=== PATIENT | male | born 1975 | race Caucasian/White ===

== ENCOUNTER 2016-05-24 20:57 | Emergency (ER) | payer BC, OTHER ==
[~2016-05-24] VITALS: Ht 177.8 cm; Wt 98.0 kg
[2016-05-24 21:02] VITALS: Ht 177.8 cm; Wt 98.0 kg
--- NOTE | 2016-05-24 21:48 | ERD ---
ER Documentation Chief Complaint Date/Time DATE: 05/24/16 TIME: 21:45 Chief Complaint body aches x 3 days, numbness on fingers x 3 days HPI 40-year-old presents in emergency department for multiple complaints, patient's complaining of joint pains bodyaches and numbness and tingling for the last 3 days. Patient denies any trauma in the joints. Patient does admit to feeling anxious today while is here in the hospital, had this history before. Patient denies any chest pain or palpitations. Patient denies any dizziness. Patient denies any fever or chills. She described the joint pains as sharp pain, 4/10 scale, better worse with anything. Patient denies any swelling. ROS All systems reviewed and are negative except as per history of present illness. Medications Home Meds Reported Medications [none] Unknown Strength No Conflict Check 05/24/16 Allergies Allergies: Coded Allergies: No Known Allergy (Unverified , 05/24/16) PMhx/Soc Medical and Surgical Hx: pt denies Surgical Hx History of Surgery: No Hx Neurological Disorder: No Hx Respiratory Disorders: No Hx Cardiac Disorders: Yes (HTN) Hx Psychiatric Problems: No Hx Miscellaneous Medical Probl: No Hx Alcohol Use: Yes Hx Substance Use: No Hx Tobacco Use: No Smoking Status: Never smoker FmHx Family History: No coronary disease, No diabetes, No other Physical Exam Vitals Vital Signs Date Time Temp Pulse Resp B/P Pulse Ox O2 Delivery O2 Flow Rate FiO2 05/24/16 22:11 107 05/24/16 21:02 97.8 111 20 168/96 100 Physical Exam GENERAL: The patient is well developed and appropriate for usual state of health, in no apparent distress. CHEST: Clear to auscultation bilaterally. There are no rales, wheezes or rhonchi. HEART: Regular rate and rhythm. No murmurs, clicks, rubs or gallops. No S3 or S4. ABDOMEN: Soft, nontender and nondistended. Good bowel sounds. No rebound or guarding. No gross peritonitis. No gross organomegaly or masses. No Morgan sign or McBurney point tenderness. BACK: No midline or flank tenderness. EXTREMITIES: Equal pulses bilaterally. There is no peripheral clubbing, cyanosis or edema. No focal swelling or erythema. Full range of motion. Grossly neurovascularly intact. NEURO: Alert and oriented. Cranial nerves 2-12 intact. Motor strength in all 4 extremities with 5/5 strength. Sensation grossly intact. Normal speech and gait. SKIN: There is no apparent rash or petechia. The skin is warm and dry. HEMATOLOGIC AND LYMPHATIC: There is no evidence of excessive bruising or lymphedema. No gross cervical, axillary, or inguinal lymphadenopathy. Result Diagram: 05/24/16215405/24/162154 Results 24 hrs Laboratory Tests Test 05/24/16 21:45 05/24/16 21:55 Urine Color LT. YELLOW Urine Clarity CLEAR Urine pH 6.0 Urine Specific Perry 1.020 Urine Ketones NEGATIVE Urine Nitrite NEGATIVE Urine Bilirubin NEGATIVE Urine Urobilinogen 0.2 E.U./dL Urine Leukocyte Esterase NEGATIVE Urine Hemoglobin NEGATIVE Urine Glucose NEGATIVE% Urine Total Protein NEGATIVE White Blood Count 12.710^3/ul Red Blood Count 5.3210^6/ul Hemoglobin 16.0g/dl Hematocrit 45.5% Mean Corpuscular Volume 85.5fl Mean Corpuscular Hemoglobin 30.1pg Mean Corpuscular Hemoglobin Concent 35.2g/dl Red Cell Distribution Width 12.9% Platelet Count 13594^3/UL Mean Platelet Volume 9.8fl Neutrophils % 72.6% Lymphocytes % 15.9% Monocytes % 9.3% Eosinophils % 1.6% Basophils % 0.3% Nucleated Red Blood Cells % 0.0/100WBC Neutrophils # 9.210^3/ul Lymphocytes # 2.010^3/ul Monocytes # 1.210^3/ul Eosinophils # 0.210^3/ul Basophils # 0.010^3/ul Nucleated Red Blood Cells # 0.010^3/ul Sodium Level 135mmol/L Potassium Level 4.0mmol/L Chloride Level 101mmol/L Carbon Dioxide Level 25mmol/L Anion Gap 13 Blood Urea Nitrogen 21mg/dl Creatinine 1.03mg/dl Glucose Level 112mg/dl Calcium Level 9.6mg/dl Total Bilirubin 0.2mg/dl Direct Bilirubin 0.00mg/dl Indirect Bilirubin 0.2mg/dl Aspartate Amino Transf (AST/SGOT) 32IU/L Alanine Aminotransferase (ALT/SGPT) 65IU/L Alkaline Phosphatase 108IU/L Total Protein 8.0g/dl Albumin 4.7g/dl Globulin 3.30g/dl Albumin/Globulin Ratio 1.42 Current Medications Medications (Trade) Dose Ordered Sig/Natasha Route PRN Reason Start Time Stop Time Status Last Admin Dose Admin Alprazolam (Xanax) 0.25 mg ONCE ONCE PO 05/24/16 22:00 05/24/16 22:01 DC 05/24/16 21:49 Ketorolac Tromethamine (Toradol) 60 mg ONCE ONCE IM 05/24/16 23:25 05/24/16 23:26 DC EKG was done, read by me and is signed and sinus tachycardia at 107 bpm, normal axis, there is no ST changes or changes in the EKG that indicates any cardiac emergencies at this time. Patient's EKG was also reviewed by Dr. Chase. Impression: no acute findings on EKG. Xanax was given here in emergency department since patient felt anxious while being here in the hospital. PROCEDURE: US OB. CLINICAL INDICATION: Pelvic pain TECHNIQUE: Transabdominal and transvaginal views of the pelvis are available for review. COMPARISON: No prior studies are available for comparison. FINDINGS: There is a single intrauterine gestation with the crown-rump length measuring 1.2 cm, corresponding to a gestational age of 7 weeks and 2 days. The heart rate is noted at 144 bpm. There are small hypoechoic areas adjacent to the gestational sac, consistent with subchorionic hemorrhage. There is an IUD seen in the lower cervical canal. The ovaries are normal in size and echogenicity. Normal Doppler flow is identified in both ovaries. The right ovary measures 2.9 x 1.6 x 1.5 cm. The left ovary measures 3.7 x 1.8 x 1.9 cm. There is a small hemorrhagic cyst in the left ovary, suspicious for a corpus luteum cyst. There is a trace amount of free fluid in the cul-de-sac. RPTAT: AA IMPRESSION: Single live intrauterine with an estimated gestational age of 7 weeks and 2 days, based on ultrasound measurements. YUMIKO based on ultrasound measurements is 01/08/17 Small areas of subchorionic hemorrhage are noted. IUD within the lower cervical canal. Follow-up is needed. .Tristen Mayers MD, MD Date Time Electronically viewed and signed by .Tristen Mayers MD, MD on 05/24/2016 21: 46 .S/ CC: GREGORIO OWENS NP Procedures/MDM Medical Decision Making: Patient's pain is nonspecific at this time, possible some form of arthritis or possible autoimmune. There is no suspicion for neurovascular compromise. Patient has intact sensation and circulation of the affected extremity. There is low suspicion for septic arthritis. Patient does not have any fever. Radiology exams of the affected area does not show any fracture or dislocation. Disposition: Home. Patient is given prescription for ibuprofen for to moderate pain, Scenic for severe pain. Patient was advised to elevate the affected area and apply ice on affected area. Patient was advised that if symptoms are worse , numbness, tingling, high fever, unable to move joint, worsening symptoms, to return to emergency department immediately. Otherwise, patient is advised to follow up with the primary care doctor in 5-7 days for reevaluation of symptoms. Departure Diagnosis: Primary Impression: Joint pain Joint pain location: unspecified Qualified Code: M25.50 - Arthralgia, unspecified joint Condition: Stable Patient Instructions: Arthralgia Additional Instructions: Patient is given prescription for ibuprofen for to moderate pain, Scenic for severe pain. Patient was advised to elevate the affected area and apply ice on affected area. Patient was advised that if symptoms are worse, numbness, tingling, high fever, unable to move joint, worsening symptoms, to return to emergency department immediately. Otherwise, patient is advised to follow up with the primary care doctor in 5-7 days for reevaluation of symptoms. GREGORIO OWENS NP May 24, 2016 21:47
[2016-05-24] MEDS ORDERED: ALPRAZOLAM 0.25 MG TAB PO ONE (22:00)
[2016-05-24 22:07] LABS: ADD SCAN DIFF NO
[2016-05-24 22:11] VITALS: PULSE 107
[2016-05-24 22:12] LABS: BASOPHILS % 0.3 % (0.0-2.0); EOSINOPHILS # 0.2 10^3/ul (0.0-0.5); EOSINOPHILS % 1.6 % (0.0-7.0); HEMATOCRIT 45.5 % (42.0-52.0); LYMPHOCYTES % 15.9 % (15.0-51.0); MEAN CORPUSCULAR HEMOGLOBIN 30.1 pg (29.0-33.0); MEAN CORPUSCULAR HGB CONC 35.2 g/dl (32.0-37.0); MEAN CORPUSCULAR VOLUME 85.5 fl (82.0-101.0); MEAN PLATELET VOLUME 9.8 fl (7.4-10.4); MONOCYTE # 1.2 10^3/ul (0.3-0.9); MONOCYTES % 9.3 % (0.0-11.0); NEUTROPHIL # 9.2 10^3/ul (1.6-7.5); NEUTROPHILS % 72.6 % (39.0-77.0); PLATELET COUNT 271 10^3/UL (140-415); RED BLOOD COUNT 5.32 10^6/ul (4.70-6.10); RED CELL DISTRIBUTION WIDTH 12.9 % (11.5-14.5); WHITE BLOOD COUNT 12.7 10^3/ul (4.8-10.8)
[2016-05-24 22:26] LABS: ALBUMIN 4.7 g/dl (3.3-4.9); ALBUMIN/GLOBULIN RATIO 1.42; BILIRUBIN,INDIRECT 0.2 mg/dl (0-1.1); BILIRUBIN,TOTAL 0.2 mg/dl (0.2-1.3); CALCIUM 9.6 mg/dl (8.4-10.2); CREATININE 1.03 mg/dl (0.61-1.24)
[2016-05-24 22:27] LABS: ADD UMIC NO; URINE BILIRUBIN (Dip) NEGATIVE (NEGATIVE); URINE BLOOD (Dip) NEGATIVE (NEGATIVE); URINE COLOR LT. YELLOW (YELLOW); URINE GLUCOSE (Dip) NEGATIVE (NEGATIVE); URINE KETONES (Dip) NEGATIVE (NEGATIVE); URINE LEUKOCYTE ESTERASE (Dip) NEGATIVE (NEGATIVE); URINE NITRITE (Dip) NEGATIVE (NEGATIVE); URINE TOTAL PROTEIN (Dip) NEGATIVE (NEGATIVE); URINE UROBILINOGEN (Dip) 0.2 E.U./dL (0.1-1.0)
[2016-05-24] MEDS ORDERED: KETOROLAC 60 MG INJ IM ONE (23:25)
[2016-05-24] MEDS ORDERED: HYDR-906 PO (23:32)
[2016-05-24] MEDS ORDERED: IBUP-1542 PO (23:32)
== END 2016-05-25 00:07 | disposition home or self-care (01) ==
LOC: FTE 20:57
DX: M25.50 Pain in unspecified joint (principal); I10 Essential (primary) hypertension
CPT/HCPCS: 80053; 81003; 85025; 93005; J1885; 36415; 96372